=== PATIENT | male | born 1935 | race Caucasian/White ===

== ENCOUNTER → 2017-01-15 | Outpatient (CLI) | payer MEDICARE | END | disposition home or self-care (01) | LOC: LABWHC1 09:03 | PROVIDERS: ATTEND Urology | DX: R97.20 Elevated prostate specific antigen [PSA] (principal) | CPT/HCPCS: 36415; 84153 ==

== ENCOUNTER → 2018-04-08 | Outpatient (CLI) | payer MEDICARE ==
--- NOTE | 2018-04-09 07:07 | US ---
EXAMINATION TYPE: US bladder DATE OF EXAM: 04/08/2018 COMPARISON: NONE CLINICAL HISTORY: N18.3 CKD; enlarged prostate EXAM MEASUREMENTS: Pre Void Volume Capacity: 108.2ml. Seen dependently at the posterior right urinary bladder wall there is an isoechoic nodular area within the mid bladder = 0.7 x 0.5 x 0.5cm. This appears to be avascula r. Post Void Residual Volume: 2.2 ml Normal Post Void Residual (less than 50ml): yes Enlarged prostate is noted. Color Doppler performed to assess ureteral jets. Bilateral Jets seen: yes IMPRESSION: 1. Separate from the impression of the prostate gland on the urinary bladder there is a focal nodular area within the right posterior urinary bladder wall seen dependently that is avascular. Therefore t his could relate to hemorrhage or debris and less likely neoplasm. CT urogram or direct visualization could be performed. 2. Enlarged heterogenous and nodular prostate with mass effect upon the urinary bladder although ther e is no abnormal post void residual.
== END | disposition home or self-care (01) ==
LOC: RADUSWWP 15:40
PROVIDERS: ATTEND Family Medicine
DX: N40.2 Nodular prostate without lower urinary tract symptoms (principal); R93.49 Abnormal radiologic findings on diagnostic imaging of other urinary organs; N18.3 Chronic kidney disease, stage 3 (moderate)
CPT/HCPCS: 76857

== ENCOUNTER → 2018-06-15 | Outpatient (CLI) | payer MEDICARE ==
[2018-06-15 14:46] LABS: Prothrombin Time 58.1 sec (9.0-12.0)
[2018-06-15 14:52] LABS: INR 6.4 (<1.2)
[2018-06-17 09:48] LABS: INR 3.7 (<1.2); Prothrombin Time 33.1 sec (9.0-12.0)
== END | disposition home or self-care (01) ==
LOC: LABWHC1 12:32
PROVIDERS: ATTEND Internal Medicine
DX: D62 Acute posthemorrhagic anemia (principal); Z51.81 Encounter for therapeutic drug level monitoring; Z79.01 Long term (current) use of anticoagulants
CPT/HCPCS: 36415; 85610

== ENCOUNTER → 2018-12-09 | Outpatient (CLI) | payer MEDICARE ==
--- NOTE | 2019-01-12 14:23 | EM ---
EVENT MONITOR Patient was monitored between December 09 until January 07, 2019. The rhythm strip available revealed a sinus mechanism with single PVCs. There was episode of atrial tachycardia. No significant pauses or malignant arrhythmia were noted. RAHUL / OUSMANEN: [id number] /
== END | disposition home or self-care (01) ==
LOC: RADXRMAIN 13:32
PROVIDERS: ATTEND Family Medicine
DX: R55 Syncope and collapse (principal); R00.2 Palpitations
CPT/HCPCS: 93270; 93271

== ENCOUNTER → 2019-01-21 | Outpatient (CLI) | payer MEDICARE ==
--- NOTE | 2019-01-21 16:45 | US ---
EXAMINATION TYPE: US kidneys/renal and bladder DATE OF EXAM: 01/21/2019 COMPARISON: CT abdomen pelvis 07/03/2015 CLINICAL HISTORY: N18.3 Chronic kidney disease, stage 3 (moderate). CKD, no symptoms EXAM MEASUREMENTS: Right Kidney: 10.9 x 5.4 x 5.3 cm Left Kidney: 11.3 x 4.5 x 5.5 cm Post Void Residual Volume: 5.6 mL Right Kidney: 2.9cm inferior pole cyst and upper pole cyst Left Kidney: No hydronephrosis or masses seen Bladder: not fully distended Bilateral Jets seen: no Normal Post Void Residual: yes Patient's upper pole cyst is not well evaluated on current exam. Right-sided inferior pole cyst appea rs stable. Cortical medullary differentiation is maintained. No hydronephrosis bilaterally. IMPRESSION: Right-sided renal cysts. Normal post void residual volume. Ureteral jets not identified during the ex am.
== END | disposition home or self-care (01) ==
LOC: RADUSWWP 15:45
PROVIDERS: ATTEND Family Medicine
DX: N28.1 Cyst of kidney, acquired (principal); N18.3 Chronic kidney disease, stage 3 (moderate)
CPT/HCPCS: 76770